=== PATIENT | female | born 1995 | race Caucasian/White ===

== ENCOUNTER 2021-02-19 13:33 | Emergency (ER) | payer BC, OTHER, SELFPAY ==
--- NOTE | ~2021-02-19 | XR_ITS ---
EXAMINATION: XR_CERV2-3V_CR DATE: 02/19/2021 14:27 INDICATION: Left arm tingling. TECHNIQUE: 3 views of cervical spine on 4 radiographs were obtained. COMPARISON: None. FINDINGS: There is 3 degrees levocurvature of cervical spine. Vertebral body heights and intervertebr al disc heights are normal. The facet joints are normal. No central canal stenosis or prevertebral so ft tissue swelling. IMPRESSION: 1. No etiology for the patient's symptoms. Reviewed, dictated and finalized at location A.
--- NOTE | ~2021-02-19 | XR_ITS ---
EXAMINATION: XR lumbar spine 2-3V DATE: 02/19/2021 14:27 INDICATION: Left-sided sciatica. TECHNIQUE: 3 views of lumbar spine were obtained. COMPARISON: None. FINDINGS: Bone alignment is normal. Vertebral body heights and intervertebral disc heights are normal . The facet joints are normal. There is an intrauterine device in expected position. IMPRESSION: 1. Normal lumbar spine. Reviewed, dictated and finalized at location A. IMPRESSION: 1. Normal lumbar spine.
[2021-02-19 13:34] VITALS: BP 119/93; PULSE 109; RESP 20; TEMP 36.2; O2SAT 99
[2021-02-19] MEDS: KETOROLAC (*BKC) 60 MG/2 ML VIAL IM (14:31)
--- NOTE | 2021-02-19 15:54 | ED.BACK ---
HPI - Back Pain/Injury General Chief Complaint: Back Pain/Injury Stated Complaint: back pain Time Seen by Provider: 02/19/21 14:01 History of Present Illness HPI Narrative: Patient is a 25-year-old female who presents ER with back pain. Ongoing for 10 months. Reports it is increased over the last couple weeks. She has been taking ibuprofen 800 mg without improvement. Majority of pain is in her low back and radiates down her left leg. She feels like she started to develop some weakness when she is walking. Cannot describe any aggravating factors at this time. Also feels like she has some tingling in her right arm. No saddle anesthesia or urinary/fecal incontinence. Patient reports she did develop some back pain that was originally attributed to the fact that she is on bedrest for preeclampsia. She then reports that there have was a lot of difficulty with her spinal/epidural when she had her baby. She is having no fevers or chills or sweats. No new rash. No trauma to her back outside of childbirth. Patient just moved to this area from [place] and has follow-up with PCP in 3 days. Related Data Allergies Allergy/AdvReac Type Severity Reaction Status Date / Time No Known Allergies Allergy Verified 02/19/21 13:45 Review of Systems Review of Systems: All systems reviewed & are unremarkable except as noted in HPI and below Constitutional: Constitutional: Denies chills, Denies fever(s) and Denies weakness ENT: Denies nasal congestion and Denies sore throat Cardiovascular: Cardiovascular: Denies chest pain, Denies rapid heart rate and Denies radiating jaw, neck or arm pain Respiratory: Respiratory: Denies cough and Denies dyspnea Genitourinary: Genitourinary: Denies nocturia, Denies dysuria and Denies urinary incontinence Musculoskeletal: Musculoskeletal: Reports back pain, Denies arthralgias, Denies joint swelling and Denies muscle cramps Neurologic: Denies headache(s) and Reports weakness Comments: paresthesia PMFSH Past Medical History Medical History (Updated 02/19/21 @ 16:00 by Fantasma Manriquez MD) Healthy female adult Surgical History Surgical History (Updated 02/19/21 @ 15:58 by Fantasma Manriquez MD) No history of previous surgery Social History Social History (Updated 02/19/21 @ 15:58 by Fantasma Manriquez MD) Smoking status: Never smoker Gender identity (if verbalized by the patient): Female Exam Narrative: GENERAL: Well-appearing, well-nourished, and in no acute distress. HEAD: Normocephalic, atraumatic. NECK: Supple. No reproducible cervical tenderness. CHEST: Clear to auscultation. No respiratory distress. HEART: Regular rate and rhythm. Normal peripheral pulses. Back: Midline tenderness around L5. No paraspinal muscular tenderness of the thoracic or lumbar spine. No midline thoracic tenderness. EXTREMITIES: Normal range of motion. No edema. 5/5 strength in the hip/knee/ankle of bilateral lower extremities. SKIN: Warm, dry, no rash. NEURO: No focal deficits. Normal sharp touch sensation in the upper and lower extremities. Alert and oriented x3. PSYCH: Normal mood and affect. Course Course Emergency Course: Patient did receive Toradol with minimal improvement. Discharge home with Medrol Dosepak and muscle relaxers. Recommend follow-up with her primary care physician. Vital Signs Vital signs: Vital Signs Temperature 97.1 F L 02/19/21 13:34 Pulse Rate 109 H 02/19/21 13:34 Respiratory Rate 20 02/19/21 13:34 Blood Pressure 119/93 H 02/19/21 13:34 Pulse Oximetry 99 02/19/21 13:34 Temperature 97.1 F L 02/19/21 13:34 Pulse Rate 109 H 02/19/21 13:34 Respiratory Rate 20 02/19/21 13:34 Blood Pressure 119/93 H 02/19/21 13:34 Pulse Oximetry 99 02/19/21 13:34 Discharge Plan Discharge Clinical Impression: Sciatica Patient Disposition: Home, Self-Care Condition: Stable Instructions: Sciatica (ED) Additional Instructions: Return to the ER
== END 2021-02-19 16:51 | disposition home or self-care (01) ==
PROVIDERS: Emergency Provider Emergency Medicine; PCP Nurse Practitioner Family
DX: M54.42 Lumbago with sciatica, left side (principal)
CPT/HCPCS: 72040; 72100; 99283; J1885

== ENCOUNTER 2021-07-18 17:55 | Emergency (ER) | payer BC, OTHER, SELFPAY ==
--- NOTE | ~2021-07-18 | XR_ITS ---
EXAMINATION: XR chest 2V EXAM DATE: 07/18/2021 18:16 INDICATION: cp/dyspnea x 2 days w/ SOB . TECHNIQUE: Frontal and lateral projections of the chest obtained and reviewed. There is no prior melisa dy for comparison. FINDINGS: The lungs are clear. There are no pleural effusions. The cardiomediastinal silhouette is within normal limits. There is no pneumothorax suspected. The bones and soft tissues are unremarkab le. IMPRESSION: No acute cardiopulmonary findings. Reviewed, dictated and finalized at location A. [employer]
--- NOTE | 2021-07-18 17:56 | ECG_ITS ---
Measurements Intervals [place] Rate: 72 P: 71 AR: 142 QRS: 24 QRSD: 86 T: 49 QT: 364 QTc: 399 Interpretive Statements SINUS RHYTHM INCOMPLETE RIGHT BUNDLE BRANCH BLOCK BORDERLINE ECG Electronically Signed On 07-18-2021 20:10:20 UNIT AIDE by Gilberto Estrada D.O.
[2021-07-18 17:57] VITALS: BP 126/91; PULSE 78; RESP 20; TEMP 36.6; O2SAT 100
[2021-07-18 18:18] LABS: Basophils Absolute Auto 0.1 K/mm3 (0.0-0.1); Basophils Percent Auto 0.9 % (0.2-1.2); Eosinophils Absolute Auto 0.1 K/mm3 (0-0.3); Eosinophils Percent Auto 1.3 % (0-4.4); Hematocrit 43.9 % (37.0-47.0); Hemoglobin 15.4 g/dL (12.0-15.0); Immature Granulocyte Absolute 0.03 K/mm3 (0.00-0.031); Immature Granulocyte Percent A 0.4 % (0-0.5); Lymphocytes Absolute Auto 2.76 K/mm3 (0.9-3.2); Lymphocytes Percent Auto 35.4 % (18.3-44.2); Mean Corpuscular HGB Conc 35.1 g/dl (32-36); Mean Corpuscular Hemoglobin 33.1 pg (26-34); Mean Corpuscular Volume 94.4 fl (80-100); Mean Platelet Volume 9.6 fl (7.4-10.4); Monocytes Absolute Auto 0.4 K/mm3 (0.1-0.6); Monocytes Percent Auto 5.4 % (2.6-8.5); Neutrophils Absolute Auto 4.4 K/mm3 (1.3-6.7); Neutrophils Percent Auto 56.6 % (45.5-73.1); Platelet Count Result 307 k/mm3 (150-375); Red Blood Count 4.65 M/mm3 (4.2-5.4); Red Cell Distribution Width 12.1 % (11.5-14.5); White Blood Count 7.8 K/mm3 (4.5-10.0)
[2021-07-18 18:28] LABS: Alanine Aminotransferase 16 U/L (4-35); Alkaline Phosphatase 79 U/L (38-126); Anion Gap 11 mmol/L (8-16); Aspartate Amino Transferase 24 U/L (14-36); Bilirubin,Total 0.4 mg/dL (0.2-1.3); Blood Urea Nitrogen 18 mg/dL (7-17); Calcium 9.7 mg/dL (8.4-10.2); Carbon Dioxide 25 mmol/L (22-30); Chloride 105 mmol/L (98-107); Estimated CRCL calculation 73 ml/min; Estimated Glomerular Filt Rate > 60; Glucose 97 mg/dL (65-110); INR 0.9; Lipase 55 U/L (23-300); Potassium 3.6 mmol/L (3.4-5.0); Prothrombin Time 12.3 Seconds (11.1-14.7); Sodium 141 mmol/L (137-145)
[2021-07-18 18:29] LABS: Partial Thromboplastin Time 30.8 SECONDS (22.3-36.8)
[2021-07-18 18:40] LABS: Troponin I < 0.012 ng/mL (0.000-0.034)
[2021-07-18 20:25] VITALS: BP 127/82; PULSE 62; RESP 18; TEMP 36.5; O2SAT 99
[2021-07-18 20:58] LABS: Troponin I < 0.012 ng/mL (0.000-0.034)
[2021-07-18 22:50] VITALS: BP 133/88; PULSE 69; RESP 18; TEMP 36.3; O2SAT 98
--- NOTE | 2021-07-18 23:54 | ED.CHESTPAIN ---
HPI - Chest Pain General Chief Complaint: Chest Pain Stated Complaint: chest pain Time Seen by Provider: 07/18/21 23:47 Source: patient Mode of arrival: ambulatory Limitations: no limitations History of Present Illness HPI narrative: Patient is a 25-year-old female complaining of chest pain, midsternal, dull, was 6 out of 10, currently not having any pain, intermittent x2 months. Patient states that she has an appointment see a lead infrastructure architect on the but was having chest pain today, called his doctor and was advised to go to the emergency room. Patient currently denies any symptoms. Patient denies any shortness of breath, abdominal pain, nausea, vomiting, diaphoresis, fever or chills. Related Data Allergies Allergy/AdvReac Type Severity Reaction Status Date / Time No Known Allergies Allergy Verified 07/18/21 17:56 Review of Systems Review of Systems: All systems reviewed & are unremarkable except as noted in HPI and below Constitutional: Constitutional: Denies body ache(s), Denies chills, Denies excessive sweating, Denies fatigue, Denies fever(s), Denies headache(s), Denies lethargy, Denies malaise, Denies weakness and Denies weight loss Eyes: Eyes: Denies blurry vision, Denies change in vision and Denies loss of vision ENT: Denies dizziness, Denies ear discharge, Denies headache(s), Denies lip swelling, Denies epistaxis, Denies nasal congestion, Denies neck pain, Denies throat swelling and Denies tongue swelling Cardiovascular: Cardiovascular: Denies chest pain, Denies chest pain at rest, Denies chest pain with activity, Denies diaphoresis, Denies rapid heart rate, Denies edema, Denies irregular heart rhythm, Denies lightheadedness and Denies palpitations Respiratory: Respiratory: Denies chest congestion, Denies cough and Denies hemoptysis Gastrointestinal: Gastrointestinal: Denies abdominal pain, Denies melena, Denies hematochezia, Denies diarrhea, Denies nausea, Denies vomiting and Denies hematemesis Musculoskeletal: Musculoskeletal: Denies abnormal gait, Denies deformity, Denies joint swelling, Denies limited range of motion, Denies neck pain and Denies numbness Neurologic: Denies Abnormal speech present, Denies abnormal gait, Denies confusion, Denies dizziness, Denies headache(s), Denies focal weakness, Denies loss of vision, Denies numbness, Denies Other visual disturbances, Denies Sensory deficit (Neuro) and Denies weakness Psychiatric: Psychiatric: Denies confusion, Denies depression, Denies auditory hallucinations, Denies homicidal ideation and Denies suicidal ideation Endocrine: Endocrine: Denies cold intolerance, Denies excessive sweating, Denies fatigue, Denies heat intolerance and Denies palpitations Hematologic/Lymphatic: Hematologic/Lymphatic: Denies easy bleeding and Denies easy bruising Allergic/Immunologic: Allergic/Immunologic: Denies lip swelling, Denies throat swelling and Denies tongue swelling PMFSH Past Medical History Medical History (Updated 07/19/21 @ 01:17 by Kb Slaughter MD) Healthy female adult Surgical History Surgical History (Updated 02/19/21 @ 15:58 by Fantasma Manriquez MD) No history of previous surgery Social History Social History (Updated 02/19/21 @ 15:58 by Fantasma Manriquez MD) Smoking status: Never smoker Gender identity (if verbalized by the patient): Female Comments Past medical history: None Family history: Negative for coronary artery disease or [place] Social history: Non-smoker no EtOH or drug use Exam Const: General: cooperative, healthy appearing, comfortable, no acute distress, well developed, alert and awake; No confusion Orientation/consciousness: oriented to person, oriented to place, oriented to time, patient oriented x3 and No confusion Limitations: no limitations HENMT: Head: normal to inspection, normocephalic and atraumatic Ears: hearing grossly normal bilaterally, TM normal on the right and TM normal on the left General nose exam: Normal exte
[2021-07-19] MEDS: IBUPROFEN 600 MG TABLET PO (00:22)
[2021-07-19 00:46] VITALS: O2SAT 100
[2021-07-19 00:47] VITALS: BP 118/79; PULSE 67; RESP 18; O2SAT 100
[2021-07-19 00:48] VITALS: O2SAT 99
[2021-07-19 01:00] VITALS: O2SAT 99
[2021-07-19 01:01] VITALS: BP 109/64; O2SAT 100
[2021-07-19 01:04] LABS: D Dimer 0.27 ug/mL (<0.48)
[2021-07-19 01:37] VITALS: BP 110/62; PULSE 83; RESP 16; O2SAT 99
== END 2021-07-19 01:39 | disposition home or self-care (01) ==
PROVIDERS: Emergency Medicine; Emergency Provider Emergency Medicine; PCP Family Medicine
DX: R07.89 Other chest pain (principal)
CPT/HCPCS: 36415; 71046; 80053; 83690; 84484; 85025; 85380; 85610; 85730; 93005; 99284; A9270